=== PATIENT | female | born 1945 | race Caucasian/White ===

== ENCOUNTER 2018-01-23 10:02 | Day surgery (SDC) | payer OTHER ==
[~2018-01-23] VITALS: Ht 148.6 cm; Wt 56.4 kg
[2018-01-23] VITALS (9 sets, daily range): BP systolic 101–198; BP diastolic 50–89
[~2018-01-23 10:02] MED LIST: ASPIR-LOW81 MG PO; BISOPROLOL FUMAR5 MG PO; CALCIUM 600 +1 EA12 PO; CLONAZEPAM0.5 MG PO; ERGOCALCIF50000 UNIT PO; FENOFIBRATE160 M1 PO; FORTEO20 MICROGR SC; MULTIVITAMIN1 EAC2 PO; NIFEDIPINE ER30 MG PO; OMEPRAZOLE40 M1 PO; SIMVASTATIN10 MG PO; VALSARTAN320 MG PO
[2018-01-23] MEDS ORDERED: ASPIRIN325 MG PO (10:37)
[2018-01-24] VITALS: BP 156/70
[2018-01-24 05:30] LABS: BASOPHIL (%) 0.6 % (0-1); BASOPHIL COUNT 0.1 K/uL (0-0.1); EOSINOPHIL COUNT 0.1 K/uL (0-0.3); HEMATOCRIT 32.6 % (36.0-46.0); HEMOGLOBIN 11.3 G/DL (11.9-15.5); IMMATURE GRANULOCYTE (%) 0.4 % (0.0-0.7); LYMPHOCYTE (%) 16.5 % (15-42); LYMPHOCYTE COUNT 1.3 K/uL (1.0-2.8); MCH 30.7 PG (29.0-34.0); MCHC 34.7 G/DL (30.0-36.0); MCV 88.6 FL (83-99); MONOCYTE (%) 6.5 % (3-12); MONOCYTE COUNT 0.5 K/uL (0-0.8); PLATELET COUNT 283 K/uL (156-360); RBC DIS.WIDTH-SD 42.3 % (39-53); RED BLOOD COUNT 3.68 M/uL (3.80-5.20); WHITE BLOOD COUNT 8.1 K/uL (4.1-10.2)
[2018-01-24 05:49] VITALS: BP 131/61
[2018-01-24 05:54] LABS: CHLORIDE 103 MEQ/L (99-109); CREATININE 0.5 MG/DL (0.6-1.3); GFR ESTIMATE (CALCULATED) > 59 mL/min/; GLUCOSE 100 mg/dL (70-99); POTASSIUM 4.4 MEQ/L (3.7-5.4); SODIUM 135 MEQ/L (136-147); UREA NITROGEN (BUN) 19 mg/dL (9-23)
[2018-01-24 07:04] VITALS: BP 125/59
[2018-01-24] MEDS ORDERED: CLOPIDOGREL75 MG PO (08:45)
[2018-01-24] MEDS ORDERED: BISOPROLOL FUMAR5 MG PO (08:48)
[2018-01-24 12:17] VITALS: BP 141/64
== END 2018-01-24 15:15 | disposition home or self-care (01) ==
LOC: CATH 10:02 → ENRESERV 13:43 → 4EAST 13:43 → 2SOUTH 13:43 → ENRESERV 14:34 → 4EAST 15:09
PROVIDERS: Internal Medicine Cardiovascular Disease
DX: I25.119 Atherosclerotic heart disease of native coronary artery with unspecified angina pectoris (principal); I35.0 Nonrheumatic aortic (valve) stenosis; I10 Essential (primary) hypertension; E78.5 Hyperlipidemia, unspecified; Z79.82 Long term (current) use of aspirin; Z87.891 Personal history of nicotine dependence; Z82.49 Family history of ischemic heart disease and other diseases of the circulatory system
CPT/HCPCS: 80048; 85025; 85347; 93005; C1725; C1769; C1874; C1887; G0378; J0360; J1644; J2250; J3010; J3246; J7030